=== PATIENT | male | born 1990 | race Caucasian/White ===

== ENCOUNTER 2019-03-23 23:52 | Emergency (ER) | payer OTHER ==
[2019-03-24] MEDS ORDERED: Ibuprofen 600 MG Tab PO ONE (00:05)
--- NOTE | 2019-03-24 00:30 | EDM.PDOC ---
ED HPI GENERAL MEDICAL PROBLEM - General Chief Complaint: Upper Extremity Injury/Pain Stated Complaint: THINKS WRIST IS BROKEN Time Seen by Provider: 03/24/19 00:05 Source of Information: Reports: Patient, RN, RN Notes Reviewed History Limitations: Reports: No Limitations - History of Present Illness INITIAL COMMENTS - FREE TEXT/NARRATIVE: Ambulatory with c/o right wrist pain since 5pm, reports moving plow off [address] [place] and plow caught watch a twisted wrist.. Increased pain with movement. Has not taken anything for pain. Not noted any swelling. No other injury. Left Wrist Pain Score (Numeric/FACES): 5 - Related Data Allergies Allergy/AdvReac Type Severity Reaction Status Date / Time cephalexin Allergy Hives Verified 03/23/19 23:56 Past Medical History HEENT History: Reports: None Cardiovascular History: Reports: None Respiratory History: Reports: None Gastrointestinal History: Reports: None Genitourinary History: Reports: None Musculoskeletal History: Reports: Other (See Below) Other Musculoskeletal History: fractured right arm Neurological History: Reports: None Psychiatric History: Reports: Anxiety Endocrine/Metabolic History: Reports: None Hematologic History: Reports: None Immunologic History: Reports: None Oncologic (Cancer) History: Reports: None Dermatologic History: Reports: None - Infectious Disease History Infectious Disease History: Reports: None - Past Surgical History Head Surgeries/Procedures: Reports: None Social & Family History - Family History Family Medical History: Noncontributory - Tobacco Use Smoking Status *Q: Never Smoker - Caffeine Use Caffeine Use: Reports: Soda - Recreational Drug Use Recreational Drug Use: No Review of Systems - Review of Systems Review Of Systems: Comprehensive ROS is negative, except as noted in HPI. ED EXAM, GENERAL - Physical Exam Exam: See Below Exam Limited By: No Limitations General Appearance: Alert, No Apparent Distress Eye Exam: Bilateral Eye: PERRL Ears: Hearing Grossly Normal Nose: Normal Inspection Throat/Mouth: Normal Voice Head: Atraumatic, Normocephalic Respiratory/Chest: No Respiratory Distress Cardiovascular: Normal Peripheral Pulses, Regular Rate, Rhythm Extremities: Normal Range of Motion. No: Non-Tender (Tender area ulnar styloid , no deformity,mild tenderness with extension), Joint Swelling Neurological: Alert, Oriented, Normal Cognition Psychiatric: Normal Affect Skin Exam: Warm, Dry, Intact. No: Ecchymosis Course - Vital Signs Last Recorded V/S: Last Vital Signs Temp 97.6 F 12/31/19 00:00 Pulse 80 03/24/19 00:00 Resp 16 03/24/19 00:00 BP 144/87 H 03/24/19 00:00 Pulse Ox 100 03/24/19 00:00 - Orders/Labs/Meds Orders: Active Orders 24 hr Category Date Time Status Wrist Comp Min 3V Lt [CR] Urgent Exams 03/24/19 00:05 Ordered Meds: Medications Discontinued Medications Generic Name Dose Route Start Last Admin Trade Name Jaja PRN Reason Stop Dose Admin Ibuprofen 600 mg 03/24/19 00:05 03/24/19 00:09 Motrin PO 03/24/19 00:06 600 mg ONETIME ONE Administration - Radiology Interpretation Free Text/Narrative:: [facility] Final Radiology Report Call: [phone] assistance Online chat: [email or web address] Name: CAITLYN ZELAYA Age: 28Years M Date: 03/24/2019 SSN: -- : 1990 Study: XR WRIST COMPLETE MIN OF 3 VIEWS LEFT Requesting Physician: KIANA WHITING Images: 3 Addl Studies: Provided Clinical History: left wrist pain Contrast: Contrast Medium: Contrast Amount: Contrast Method: CONFIDENTIALITY STATEMENT This report is intended only for use by the referring physician, and only in accordance with law. If you received this in error, call [phone]. Page 1 of 1 PROCEDURE INFORMATION: Exam: XR Left Wrist Exam date and time: 03/24/2019 12:07 AM Age: 28 years old Clinical indication: Injury or trauma; Injury history: Caught watch on plow attached to [employer], left wrist pain; Initial encounter; Abrasion; Injury date: 03/23/2019 TECHNIQUE: Imaging protocol: XR Left wrist. Views: 3 or more views. COMPARISON: No relevant prior studies available. FINDINGS: Bones/joints: Normal. Soft tissues: Normal. IMPRESSION: 1. No acute findings. 2. No fracture, dislocation, or soft tissue foreign body. Thank you for allowing us to participate in the care of your patient. Dictated and Authenticated by: Jorge De Jesus MD 03/24/2019 12:21 AM Central Time ([place] & [place]) Departure - Departure Time of Disposition: 00:24 Disposition: Home, Self-Care 01 Condition: Good Clinical Impression: Wrist pain, left - Discharge Information *PRESCRIPTION DRUG MONITORING PROGRAM REVIEWED*: No *COPY OF PRESCRIPTION DRUG MONITORING REPORT IN PATIENT ISAIAS: No Instructions: Wrist Splint, Adult, [id number] Additional Instructions: ice rest [facility] follow up if continued pain one week alternate tylenol and ibuprofen for discomfort every 4 hours as needed Sepsis Event Note - Evaluation Sepsis Screening Result: No Definite Risk - Focused Exam Vital Signs: Vital Signs Temp Pulse Resp BP Pulse Ox 03/24/19 00:00 97.6 F 80 16 144/87 H 100 Date Exam was Performed: 03/24/19 Time Exam was Performed: 00:24 - My Orders Last 24 Hours: My Active Orders 03/24/19 00:05 Wrist Comp Min 3V Lt [CR] Urgent - Assessment/Plan Last 24 Hours: My Active Orders 03/24/19 00:05 Wrist Comp Min 3V Lt [CR] Urgent
== END 2019-03-24 00:28 | disposition home or self-care (01) ==
LOC: DL.ED 23:52
DX: M25.532 Pain in left wrist (principal); Z88.1 Allergy status to other antibiotic agents
CPT/HCPCS: 73110; 99283; A9270